=== PATIENT | male | born 1970 | race Caucasian/White ===

== ENCOUNTER 2025-05-29 12:26 | Outpatient (CLI) | payer BC, MEDICAID ==
--- NOTE | 2025-05-29 13:07 | RADIOLOGY REPORT ---
INDICATION: BILATERAL LEG WEAKNESS COMPARISON: None TECHNIQUE: 5 views of the lumbar spine were obtained. FINDINGS: Mild multilevel degenerative disc disease of the lumbosacral spine. No acute fracture, vertebral compression deformity or aggressive osseous lesions. The paravertebral soft tissues are grossly unremarkable. 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 IMPRESSION: No acute fracture.
== END 2025-05-29 23:59 | disposition home or self-care (01) ==
LOC: RAD 12:26
PROVIDERS: ATTEND Family Medicine
DX: M51.379 Other intervertebral disc degeneration, lumbosacral region without mention of lumbar back pain or lower extremity pain (principal); R29.898 Other symptoms and signs involving the musculoskeletal system; I70.0 Atherosclerosis of aorta; R53.1 Weakness
CPT/HCPCS: 72110

== ENCOUNTER 2025-07-28 10:53 | Outpatient (CLI) | payer MEDICAID ==
--- NOTE | 2025-07-28 12:39 | RADIOLOGY REPORT ---
Procedure: CT CT CHEST LOW DOSE Reason for study/Clinical History: TOBACCO USE COMPARISON: None TECHNIQUE: Multidetector CT of the chest was performed from the lung apices to the upper abdomen without the use of intravenous contract. Axial, coronal and sagittal multiplanar reformats were performed. Radiation Dose Information: CT Dose: CTDI volume is 2.8 mGy. Dose-length product is 107.6 mGy*cm The dose indicators for CT are the volume Computed Tomography (CT) Dose Index (CTDIvol) and the Dose Length Product (DLP), and are measured in units of mGy and mGy-cm, respectively. These indicators are not patient dose, but values generated from the CT scanner acquisition factors. The report includes radiation exposure data for exposures received during this examination. FINDINGS: Lower neck: Normal thyroid. Lungs: No focal consolidation. COPD/emphysema. Left basilar subsegmental atelectasis. No suspicious pulmonary nodules Heart/Vascular Structures: Coronary artery calcifications. Total calcium score 137 (50-75th percentile). Lymph Nodes: No adenopathy Pleura: No pleural effusion or significant pneumothorax. Musculoskeletal: No acute osseous abnormality. Soft tissues: Normal. Upper abdomen: Limited portions of the upper abdomen are unremarkable. IMPRESSION: No acute intrathoracic abnormality. COPD/emphysema. No suspicious pulmonary nodules. Coronary artery calcifications. LUNG RADS Category 1: Continue annual screening with LDCT
== END 2025-07-28 23:59 | disposition home or self-care (01) ==
LOC: RAD 10:53
DX: Z12.2 Encounter for screening for malignant neoplasm of respiratory organs (principal); I25.10 Atherosclerotic heart disease of native coronary artery without angina pectoris; J43.9 Emphysema, unspecified; Z87.891 Personal history of nicotine dependence
CPT/HCPCS: 71271